=== PATIENT | female | born 1935 | race Caucasian/White ===

== ENCOUNTER 2016-12-02 12:27 | Observation (INO) | payer MEDICARE, OTHER ==
[2016-12-02] MEDS ORDERED: cefTRIAXone(*) 1 GM in NS 0.9% 50 ML* 50 ML IVPB ONE (14:56)
[2016-12-02] MEDS ORDERED: NS 0.9% 1000 ML* 1,000 ML IV ONE (14:56)
[2016-12-02 15:27] LABS: Hematocrit 34 % (35-47); Hemoglobin 11.6 g/dl (12.0-16.0); Mean Corpuscular HGB Conc 34 g/dl (31-36); Mean Corpuscular Hemoglobin 28 pg (27-31); Mean Corpuscular Volume 83 fL (80-97); Mean Platelet Volume 10 um3 (7.4-10.4); Red Blood Count 4.12 10^6/ul (4.0-5.4); Red Cell Distribution Width 13 % (10.5-15); White Blood Count 7.3 10^3/ul (3.5-10.8)
[2016-12-02 15:39] LABS: Urine Bilirubin Negative (Negative); Urine Glucose 1+(50 mg/dL) (Negative); Urine Nitrite Positive (Negative)
[2016-12-02 15:43] LABS: Albumin 3.4 g/dL (3.2-5.2); BUN/Creatinine Ratio 28.8 (8-20); Calcium 9.9 mg/dL (8.6-10.3); EGFR African American 97.9 (>60); EGFR Non-African American 76.1 (>60); Globulin 4.3 g/dL (2-4); Total Bilirubin 0.7 mg/dL (0.2-1.0); Total Protein 7.7 g/dL (6.4-8.9)
[2016-12-02 15:55] LABS: C Reactive Protein 21.77 mg/L (< 5.00); Urine Bacteria 3+ (Absent)
--- NOTE | 2016-12-02 17:42 | RAD ---
INDICATION: Right flank pain COMPARISON: None TECHNIQUE: Real-time ultrasound examination of the bilateral kidneys and urinary bladder including grayscale and Doppler color flow analysis. FINDINGS: The right kidney measures 10.9 x 4.4 x 4.3 cm. There is a mild degree of right-sided hydronephrosis. At the lower pole collecting system there is an echogenic partially shadowing calculus measuring 6 x 5 x 7 mm. The left kidney is sonographically normal in appearance measuring 11.2 x 5.8 x 5.6 cm. The winslow of the urinary bladder are smooth. Bilateral ureteral jets are not visualized. IMPRESSION: In the correct clinical setting sonographic findings are consistent with a urinary calculus causing mild to moderate right-sided hydronephrosis.
--- NOTE | 2016-12-02 18:55 | ED ---
Sowmya Anderson Alfonso, scribed for Aura Blackwell MD on 12/02/16 at 1500 . Complex/Multi-Sys Presentation - HPI Summary HPI Summary: This patient is an 81 year old F presenting per PCP referral to [facility] accompanied by daughter with a chief complaint of weakness since 10 days ago. Pt rates the pain 0/10 in severity. Symptoms aggravated and alleviated by nothing. Pt reports her last normal BM was this morning. Pt reports abd pain, productive cough, weight loss of 10 lb in 10 days, and N/V. Pt denies urinary symptom, melena, and blood in stools. PMHx of diabetes mellitus. In PCP's office pt had pos leuks and pos nitrites on UA. Referred for further eval of poss pyelo, poss sepsis, poss hydronephrosis and kidney stones (which pt has had in the past). - History Of Current Complaint Chief Complaint: EDWeakness Time Seen by Provider: 12/02/16 14:26 Hx Obtained From: Patient, Family/Guest Relations Associate - Daughter, Medical Records - PCP Onset/Duration: Sudden Onset, Lasting Days - 10, Still Present Timing: Constant Severity Currently: Mild Severity Initially: Mild Character: Dull Aggravating Factor(s): Nothing Alleviating Factor(s): Nothing Associated Signs And Symptoms: Positive: Weakness, Cough, Wheezing, Nausea, Vomiting, Abdominal Pain, Decreased Oral Intake, Other - Positive weakness, abd pain, productive cough, weight loss of 10 lb in 10 days, and N/V; negative urinary symptoms, melena, and blood in stools.. Negative: Dysuria, Melena, Fever Related History: Similar Episode/Diagnosed As: - hydronephrosis - Allergies/Home Medications Allergies/Adverse Reactions: Allergies Allergy/AdvReac Type Severity Reaction Status Date / Time Nitrofurantoin Allergy Mild Anxiety Verified 06/16/14 08:18 [From Macrobid] Home Medications: Home Medications Cholecalciferol TAB* [Vitamin D TAB*] 1,000 unit PO DAILY 12/02/16 [History Confirmed 12/02/16] Cyanocobalamin TAB* [Vitamin B12 TAB*] 1,000 mcg PO DAILY 12/02/16 [History Confirmed 12/02/16] Insulin Glargine [Lantus Solostar 5x3 ML PENS] 30 units SUBCUT QPM 12/02/16 [ History Confirmed 12/02/16] Losartan TAB* [Cozaar TAB*] 100 mg PO DAILY 12/02/16 [History Confirmed 12/02/16 ] Meclizine TAB* [Antivert 12.5 TAB*] 12.5 mg PO QID PRN 12/02/16 [History Confirmed 12/02/16] Omeprazole CAP* [Prilosec CAP* 20 MG] 20 mg PO DAILY 12/02/16 [History Confirmed 12/02/16] Raloxifene (NF) [Evista(NF)] 60 mg PO DAILY 12/02/16 [History Confirmed 12/02/16 ] Simvastatin TAB(NF) [Zocor(NF)] 20 mg PO BEDTIME 12/02/16 [History Confirmed 03/11] PMH/Surg Hx/FS Hx/Imm Hx Previously Healthy: No Endocrine/Hematology History: Reports: Hx Diabetes - TYPE II- ON INSULIN FOR Denies: Hx Sickle Cell Disease Cardiovascular History: Reports: Hx Hypertension - ON MEDICATION FOR, Other Cardiovascular Problems/Disorders - HIGH CHOLESTEROL Respiratory History: Denies: Other Respiratory Problems/Disorders GI History: Reports: Hx Gastroesophageal Reflux Disease - ON OMEPRAZOLE FOR, Hx Hiatal Hernia History: Reports: Hx Kidney Infection, Hx Kidney Stones - LAST IN 04/2014, Other Problems/Disorders - UTI; HX OF BILAT KIDNEY STONES-sees Dr. 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 Hx Chemotherapy: No Hx Radiation Therapy: No - Surgical History Surgery Procedure, Year, and Place: LITHOTRIPSY - NAVJOT NEFF HERE WITH JANET. 04/2014-LITHOTRIPSY AND STENT REMOVED. APPENDIX - 1953. TONSILS - 1947. PARATHYROID - 1989-[facility]. COLON RESECTION. UMBILLICAL HERNIA REPAIR. HERNIA-2007 [facility] Hx Anesthesia Reactions: No - PT REQUESTS NO SPINAL!!!!!! - Immunization History Date of Tetanus Vaccine: 06/21/2015 Date of Influenza Vaccine: 02/27/2016 Infectious Disease History: No Infectious Disease History: Denies: Traveled Outside the [place] in Last 30 Days - Family History Known Family History: Positive: Cardiac Disease - Social History Alcohol Use: None Substance Use Type: Reports: None Smoking Status (MU): Never Smoked Tobacco Review of Systems Positive: Other - Positive weight loss of 10 lb in 10 days Cardiovascular: Negative Positive: Cough - Productive Positive: Abdominal Pain, Vomiting, Nausea, Other - Negative melena, blood in stools, Positive: no symptoms reported Musculoskeletal: Negative Skin: Negative Positive: Weakness Psychological: Normal All Other Systems Reviewed And Are Negative: Yes Physical Exam Triage Information Reviewed: Yes Vital Signs On Initial Exam: Initial Vitals Temp Pulse Resp BP Pulse Ox 97.5 F 116 20 151/93 98 12/02/16 12:29 12/02/16 12:29 12/02/16 12:29 12/02/16 12:29 12/02/16 12:29 Vital Signs Reviewed: Yes Appearance: Positive: Well-Appearing, No Pain Distress, Obese Skin: Positive: Warm, Skin Color Reflects Adequate Perfusion Head/Face: Positive: Normal Head/Face Inspection Eyes: Positive: Conjunctiva Clear ENT: Positive: Normal ENT inspection Neck: Positive: Supple Respiratory/Lung Sounds: Positive: Clear to Auscultation, Breath Sounds Present Cardiovascular: Positive: Pulses are Symmetrical in both Upper and Lower Extremities, Tachycardia. Negative: Murmur Abdomen Description: Positive: No Organomegaly, Soft, Other: - Minimal diffuse tenderness of abdomen with no rebound.. Negative: CVA Tenderness (R), CVA Tenderness (L), Distended, Guarding, McBurney's Point Tenderness, Peritoneal Signs, Pulsatile Mass Bowel Sounds: Positive: Present Musculoskeletal: Positive: Strength/ROM Intact Neurological: Positive: Sensory/Motor Intact, Alert, Oriented to Person Place, Time, CN Intact II-III. Negative: Facial Droop, Focal Deficit @, Slurred Speech Psychiatric: Positive: Normal - Rosalind Coma Scale Coma Scale Total: 15 Diagnostics - Vital Signs Vital Signs Temp Pulse Resp BP Pulse Ox 12/02/16 14:54 152/84 12/02/16 14:22 97.7 F 100 19 170/110 98 12/02/16 12:29 97.5 F 116 20 151/93 98 - Laboratory Lab Results: Lab Results 07/10/17 07/10/17 07/10/17 Range/Units 15:15 15:15 15:15 WBC 7.3 (3.5-10.8) 10^3/ul RBC 4.12 (4.0-5.4) 10^6/ul Hgb 11.6 L (12.0-16.0) g/dl Hct 34 L (35-47) % MCV 83 (80-97) fL MCH 28 (27-31) pg MCHC 34 (31-36) g/dl RDW 13 (10.5-15) % Plt Count 234 (150-450) 10^3/ul MPV 10 (7.4-10.4) um3 Neut % (Auto) 71.3 (38-83) % Lymph % (Auto) 17.8 L (25-47) % Brown % (Auto) 7.9 (1-9) % Eos % (Auto) 1.5 (0-6) % Baso % (Auto) 1.5 (0-2) % Absolute Neuts (auto) 5.2 (1.5-7.7) 10^3/ul Absolute Lymphs (auto) 1.3 (1.0-4.8) 10^3/ul Absolute Monos (auto) 0.6 (0-0.8) 10^3/ul Absolute Eos (auto) 0.1 (0-0.6) 10^3/ul Absolute Basos (auto) 0.1 (0-0.2) 10^3/ul Absolute Nucleated RBC 0 10^3/ul Nucleated RBC % 0 Sodium 132 L (133-145) mmol/L Potassium 4.0 (3.5-5.0) mmol/L Chloride 97 L (101-111) mmol/L Carbon Dioxide 26 (22-32) mmol/L Anion Gap 9 (2-11) mmol/L BUN 21 (6-24) mg/dL Creatinine 0.73 (0.51-0.95) mg/dL Est GFR ( Amer) 97.9 (>60) Est GFR (Non-Af Amer) 76.1 (>60) BUN/Creatinine Ratio 28.8 H (8-20) Glucose 162 H (70-100) mg/dL Lactic Acid (0.5-2.0) mmol/L Calcium 9.9 (8.6-10.3) mg/dL Total Bilirubin 0.70 (0.2-1.0) mg/dL AST 12 L (13-39) U/L ALT 13 (7-52) U/L Alkaline Phosphatase 70 (34-104) U/L C-Reactive Protein 21.77 H (< 5.00) mg/L Total Protein 7.7 (6.4-8.9) g/dL Albumin 3.4 (3.2-5.2) g/dL Globulin 4.3 H (2-4) g/dL Albumin/Globulin Ratio 0.8 L (1-3) Urine Color Yellow Urine Appearance Cloudy Urine pH 5.0 (5-9) Ur Specific [place] 1.012 (1.010-1.030) Urine Protein Negative (Negative) Urine Ketones Negative (Negative) Urine Blood Negative (Negative) Urine Nitrate Positive H (Negative) Urine Bilirubin Negative (Negative) Urine Urobilinogen Negative (Negative) Ur Leukocyte Esterase 3+ H (Negative) Urine WBC (Auto) 2+(11-20/hpf) H (Absent) Urine RBC (Auto) Absent (Absent) Urine Bacteria 3+ H (Absent) Urine Glucose 1+(50 mg/dl) H (Negative) 12/02/16 Range/Units 15:15 WBC (3.5-10.8) 10^3/ul RBC (4.0-5.4) 10^6/ul Hgb (12.0-16.0) g/dl Hct (35-47) % MCV (80-97) fL MCH (27-31) pg MCHC (31-36) g/dl RDW (10.5-15) % Plt Count (150-450) 10^3/ul MPV (7.4-10.4) um3 Neut % (Auto) (38-83) % Lymph % (Auto) (25-47) % Brown % (Auto) (1-9) % Eos % (Auto) (0-6) % Baso % (Auto) (0-2) % Absolute Neuts (auto) (1.5-7.7) 10^3/ul Absolute Lymphs (auto) (1.0-4.8) 10^3/ul Absolute Monos (auto) (0-0.8) 10^3/ul Absolute Eos (auto) (0-0.6) 10^3/ul Absolute Basos (auto) (0-0.2) 10^3/ul Absolute Nucleated RBC 10^3/ul Nucleated RBC % Sodium (133-145) mmol/L Potassium (3.5-5.0) mmol/L Chloride (101-111) mmol/L Carbon Dioxide (22-32) mmol/L Anion Gap (2-11) mmol/L BUN (6-24) mg/dL Creatinine (0.51-0.95) mg/dL Est GFR ( Amer) (>60) Est GFR (Non-Af Amer) (>60) BUN/Creatinine Ratio (8-20) Glucose (70-100) mg/dL Lactic Acid 1.2 (0.5-2.0) mmol/L Calcium (8.6-10.3) mg/dL Total Bilirubin (0.2-1.0) mg/dL AST (13-39) U/L ALT (7-52) U/L Alkaline Phosphatase (34-104) U/L C-Reactive Protein (< 5.00) mg/L Total Protein (6.4-8.9) g/dL Albumin (3.2-5.2) g/dL Globulin (2-4) g/dL Albumin/Globulin Ratio (1-3) Urine Color Urine Appearance Urine pH (5-9) Ur Specific [place] (1.010-1.030) Urine Protein (Negative) Urine Ketones (Negative) Urine Blood (Negative) Urine Nitrate (Negative) Urine Bilirubin (Negative) Urine Urobilinogen (Negative) Ur Leukocyte Esterase (Negative) Urine WBC (Auto) (Absent) Urine RBC (Auto) (Absent) Urine Bacteria (Absent) Urine Glucose (Negative) Result Diagrams: 12/02/16 15:15 12/02/16 15:15 Lab Statement: Any lab studies that have been ordered have been reviewed, and results considered in the medical decision making process. - Additional Comments Diagnostic Additional Comments: Renal US :In the correct clinical setting sonographic findings are consistent with a urinary calculus causing mild to moderate right-sided hydronephrosis. Re-Evaluation - Re-Evaluation First Eval Re-Evaluation Time: 17:47 Change: Improved Comment: Pt reports she is hungry and is not in pain currently. Discussed lab and imaging results. Pt understands and agrees with plan for admission. Complex Multi-Symp Course/Dx Assessment/Plan: 81 year old F presents to the ED with a CC of weakness since 10 days ago. Pt reports abdominal pain, productive cough, weight loss of 10 lb in 10 days, and N/V. Pt denies urinary symptoms, melena, and blood in stools. An US renal reveals In the correct clinical setting sonographic findings are consistent with a urinary calculus causing mild to moderate right-sided hydronephrosis. We discussed patient care with Dr. Hudson (Patients PCP) and they recommended an US. Patient will be admitted under the care of Dr. Bernal ( hospitalist). Of note, Dr. Pulliam is application analyst tomorrow. Dr. Bernal agrees that pt can be admitted overnight despite no urologist application analyst tonight. Pt is agreeable with this plan. High blood pressure noted. Pt medications reviewed this visit. - Diagnoses Differential Diagnoses/HQI/PQRI: Metabolic Abnormality, Sepsis, Urinary Tract Infection, Other - pyelonephritis, hydronephrosis, renal calculi Provider Diagnoses: UTI (urinary tract infection), Hydronephrosis determined by ultrasound, Hypertension, poor control - Physician Notifications Discussed Care Of Patient With: Clare Hudson Time Discussed With Above Provider: 16:00 Instructed by Provider To: Admit As Inpatient - Consulted Dr. Hudson (Patient's PCP) who recommended an US. Consulted Dr. Bernal (hospitalist) at 1801 who agrees to admit. Discharge - Discharge Plan Condition: Stable Disposition: ADMITTED TO [facility] Referrals: Clare Hudson MD [Primary Care Provider] - The documentation as recorded by the Sowmya mei Alfonso accurately reflects the service I personally performed and the decisions made by , Aura Blackwell MD.
[2016-12-02] MEDS ORDERED: Acetaminophen TAB* 325 MG PO PRN (18:59)
[2016-12-02] MEDS ORDERED: Meclizine TAB* 12.5 MG PO PRN (19:03)
[2016-12-02] MEDS ORDERED: Dextrose 50% Syringe 50 ML* 25 GM/50 ML SYRINGE IV PUSH PRN (19:04)
[2016-12-02] MEDS ORDERED: NS 0.9% 1000 ML* 1,000 ML IV SCH (19:15)
--- NOTE | 2016-12-02 19:59 | RAD ---
INDICATION: Cough and weakness COMPARISON: Chest x-ray dated February 14, 2014 TECHNIQUE: PA and lateral views of the chest were obtained. FINDINGS: The heart and mediastinum are normal in size and contour. Stable ectatic curvature of the thoracic aorta is noted. The lungs are grossly clear. There is no evidence of large pleural effusion. The bones appear to be diffusely osteopenic. Degenerative changes of thoracic spine include loss of intervertebral disc height. There is no radiographic evidence of free air beneath the diaphragm IMPRESSION: No radiographic evidence of acute cardiopulmonary disease.
[2016-12-02] MEDS ORDERED: Atorvastatin* 10 MG TAB PO SCH (21:00)
[2016-12-02] MEDS ORDERED: Insulin GLARGINE(*) 1 UNITS UNIT SUBCUT SCH (21:00)
[2016-12-02] MEDS: Insulin LISPRO* 1 UNITS UNIT SUBCUT SCH (22:02)
[2016-12-02] MEDS: Heparin VIAL(*) 5000 UNITS/ML VIAL (FIVE THOUSAND) SUBCUT SCH (22:03)
[2016-12-02] MEDS ORDERED: CMCS:Melatonin (NF) 3 MG TAB PO PRN (23:47)
--- NOTE | 2016-12-03 | HP ---
CC: Dr. Hudson; Dr. Erick Pulliam * ADMISSION HISTORY AND PHYSICAL: DATE OF ADMISSION: PRIMARY CARE PROVIDER: Clare Hudson MD CHIEF COMPLAINT: Fatigue. SOURCE OF INFORMATION: History obtained from interview with patient, review of Dr. Hudson's note from today in clinic, review of past medical records. RELIABILITY: Good. HISTORY OF PRESENT ILLNESS: This is an 81-year-old female with a past medical history of recurrent renal calculi associated with recurrent UTIs, status post lithotripsy approximately 7 times, last in 2003 with a stent in the right ureter in 2012, who for the last 10 to 12 days, has had increasing nausea, mostly in the morning, sensation as she has been choking on phlegm associated with coughing and decreased appetite. She has noted no leonarda fevers, although did feel sweaty, although not soaking through her cloths, no shaking chills, but did feel cold in general. Because of the persistent symptoms, her family convinced her to present to her primary care provider, Dr. Hudson, where she was seen today. The patient stated she "thought I had a bug." When seen by Dr. Hudson today, she was concerned that she had a systemic infection and was directed her towards to the emergency room. At her baseline, the patient plays cards several times a week outside of their home and attends an exercise class; however, there is a decline over the last 2 weeks. Additionally, she notes a 10 -pound weight loss over the 10 days, not associated with lower extremity swelling, urinary frequency, hesitancy or dysuria, although the patient and her daughter notes that she has never had these symptoms with past urinary tract infections. She denies change in her sleeping habits. In fact, notes she has been sleeping better with decreased urine output overnight. Denies orthopnea or PND. The patient additionally denies chest pain. PAST MEDICAL HISTORY: Recurrent renal calculi, status post multiple lithotripsies, last in 2013, recurrent UTIs, insulin dependent diabetes mellitus , hypertension, hyperlipidemia, aneurysm of thoracic aorta, hyperparathyroidism , status post partial parathyroidectomy, osteoporosis, hiatal hernia, diverticulosis, colectomy in 2007, osteoarthritis, appendectomy, tonsillectomy, hysterectomy, evacuation of subdural hematoma, hernia repair umbilical in 2005, recurrent diverticulitis. HOME MEDICATIONS: 1. Vitamin B12 1000 mcg daily. 2. Simvastatin 20 mg at bedtime. 3. Raloxifene 60 mg daily. 4. Omeprazole 20 mg daily. 5. Losartan 100 mg daily. 6. Insulin glargine 30 units in the evening, unclear if she receives a sliding scale insulin at this time. 7. Cholecalciferol 1000 units daily. 8. Meclizine 12.5 mg 4 times a day as needed for vertigo. ALLERGIES: To MACROBID. FAMILY HISTORY: Mother with glaucoma, secondary to Parkinson at age 95. Father secondary to hypertension and stroke at 85. SOCIAL HISTORY: No history of tobacco, has very rare alcohol. No illicits. Lives alone. REVIEW OF SYSTEMS: As per HPI, otherwise all other systems are negative. PHYSICAL EXAMINATION Vitals in the emergency room 138/72, heart rate 89, respiratory rate 18, T-max in the emergency room 98.9. She is 100% on room air. PERTINENT LABORATORY DATA: White blood cell count 7.3, hemoglobin 11.6, platelets 234. Sodium 132, BUN 21, creatinine 0.73, glucose 162, lactic acid 1.2. CRP is 21. Urine positive for nitrites, leukocyte esterase, white blood cells, bacteria and glucose. Renal ultrasound: At the lower pole collecting system, there is an echogenic partially shadowing calculus measuring 6 x 6 x 7 mm of the right kidney. Impression: In the correct clinical settings, sonographic findings are consistent with a urinary calculus causing mild to moderate right-sided hydronephrosis. EKG and chest x-ray are pending. ASSESSMENT AND PLAN: This is an 81-year-old female with recurrent urinary tract infections in the setting of recurrent renal calculi presenting to the hospital with nausea associated with fatigue and weight loss over the last 1 to 2 weeks. 1. Fatigue. Urinalysis is consistent with a urinary tract infection. Additionally, she has a repeat nephrolithiasis consistent with past presentations. Suspect urinary tract infection at this time, although she does appear septic at this time. She has received ceftriaxone in the emergency room. We will dose ciprofloxacin tomorrow for her nephrolithiasis with obstruction. Dr. Pulliam will be consulted tomorrow; however, she has not received an EKG nor a chest x-ray at this time. We will check both to rule out any worsening cardiac etiology for progressive weakness over the last week as well as any other underlying infection as she has been having cough and increasing phlegm. Ceftriaxone should cover for both at this time. 2. Nephrolithiasis. Consult Urology as above. Gentle hydration. 3. Hypertension. Consider continue losartan. 4. Type 2 diabetes. Continue Lantus, low dose sliding scale. 5. DVT prophylaxis. Heparin subcu. 6. Full code. [id number]/[facility] #: [id number] MTDD
[2016-12-03] MEDS: Heparin VIAL(*) 5000 UNITS/ML VIAL (FIVE THOUSAND) SUBCUT SCH ×2 (05:54→12:48)
[2016-12-03] MEDS: Insulin LISPRO* 1 UNITS UNIT SUBCUT SCH ×2 (07:28→12:46)
[2016-12-03] MEDS ORDERED: Ciprofloxacin TAB* 500 MG PO SCH (09:00)
[2016-12-03] MEDS ORDERED: Cyanocobalamin TAB* 500 MCG PO SCH (09:00)
[2016-12-03] MEDS ORDERED: Cholecalciferol TAB* 1000 UNITS PO SCH (09:00)
[2016-12-03] MEDS ORDERED: Losartan TAB* 25 MG PO SCH (09:00)
[2016-12-03] MEDS ORDERED: Raloxifene (NF) 60 MG TAB PO SCH (09:00)
[2016-12-03] MEDS ORDERED: Omeprazole CAP* 20 MG PO SCH (09:00)
[2016-12-03 12:57] VITALS: BP 124/61
--- NOTE | 2016-12-04 12:07 | DS ---
CC: Dr. Hudson * DISCHARGE SUMMARY: DATE OF ADMISSION: 12/02/16 DATE OF DISCHARGE: 12/03/16 PRIMARY DIAGNOSIS: Nephrolithiasis. SECONDARY DIAGNOSES: Include: 1. Recurrent urinary tract infections. 2. Insulin-dependent diabetes mellitus. 3. Hypertension. 4. Hyperlipidemia. DISCHARGE MEDICATIONS: 1. Vitamin B12 1000 mcg daily. 2. Simvastatin 20 mg in the evening. 3. Evista 60 mg daily. 4. Omeprazole 20 mg daily. 5. Losartan 100 mg daily. 6. Insulin glargine 30 units in the evening. 7. Cholecalciferol 1000 units daily. 8. Meclizine 12.5 mg 4 times a day as needed. 9. Keflex 500 mg 2 times a day for 7 additional days. PERTINENT IMAGING STUDIES: Renal ultrasound in the correct clinical setting, sonographic findings are consistent with a urinary calculus causing mild-to- moderate right-sided hydronephrosis. ASSESSMENT AND PLAN: This is an 81-year-old female with past medical history as outlined in the history present illness on the day of admission, who presented to the hospital with increasing fatigue, weakness, nausea over the last 10 to 12 days, sent in from Dr. Hudson's office. Urinalysis was consistent with a urinary tract infection, although culture is still pending at this time. Renal ultrasound above was concerning for obstructing nephrolithiasis with possible [id number] hydronephrosis. This study was reviewed with Dr. Pulliam, who indicated that the nephrolithiasis is stable, nonobstructing, since her last ultrasound checked in August of 2016. Additionally, she has an extrarenal pelvis, which can be misconstrued as hydronephrosis, which he does not think she has at this time. In this respect, she is stable for discharge should the discharge be pending intervention on nephrolithiasis as well as hydronephrosis. After a dose of antibiotics and a liter of IV fluid, the patient felt back to her baseline following the day of admission. She was anxious to return home. FOLLOWUP: At followup, please: 1. Follow up final cultures and sensitivity from urinalysis. The patient is to start on Keflex based on previous cultures and sensitivities. 2. No other specific labs or vitals that need followup. Reasons to return to the hospital included but are not limited to recurrent or worsening symptoms including fever, chills or night sweats, chest pain, shortness of breath, nausea, vomiting, lightheadedness, loss of consciousness, increasing fatigue, urinary symptoms, or inability to obtain or tolerate medications discussed with the patient and her son. They acknowledged understanding. TIME SPENT: Greater than 30 minutes was spent on the discharge of this patient , greater than half was [id number] with the patient. [id number]/[facility] #: [id number] MTDD
== END 2016-12-03 13:30 | disposition home or self-care (01) ==
LOC: ED 12:27 → MED 18:59
PROVIDERS: ADMIT Internal Medicine; ATTEND Internal Medicine
DX: N20.0 Calculus of kidney (principal); Z87.440 Personal history of urinary (tract) infections; R10.9 Unspecified abdominal pain; E11.9 Type 2 diabetes mellitus without complications; Z79.4 Long term (current) use of insulin; I10 Essential (primary) hypertension; E78.5 Hyperlipidemia, unspecified; Q64.8 Other specified congenital malformations of urinary system
CPT/HCPCS: 36415; 71020; 76775; 80053; 81003; 81015; 83605; 85025; 86140; 87040; 93005; 96361; 96365; 99283; A9270-GY; G0378; J0696; J1644

== ENCOUNTER 2017-02-10 06:22 | Day surgery (SDC) | payer MEDICARE, BC ==
--- NOTE | 2017-01-24 08:14 | HP ---
CC: Dr. Clare Hudson * ADMITTING HISTORY AND PHYSICAL: DATE OF ADMISSION: 02/10/17 - [facility] WITH [facility] ADMITTING DIAGNOSES: 1. Right hydronephrosis. 2. Partial right ureteropelvic junction obstruction. 3. Recurrent urinary tract infections. PLANNED PROCEDURE: Right retrograde, right stent insertion, possible balloon dilatation. SURGEON: Dr. Pulliam. HISTORY OF PRESENT ILLNESS: Laura Stratton is an 81-year-old lady with a history of recurrent urinary tract infections and of renal calculi. On retrograde imaging done a few years ago, I had noticed an appearance consistent with partial right ureteropelvic junction obstruction and a recent ultrasound showed worsening of right hydronephrosis. In addition, she had a recent admission in November of 2016 related to fatigue and urinary tract infection. PAST MEDICAL HISTORY: Significant for: 1. Recurrent renal calculi. 2. Recurrent urinary tract infections. 3. Insulin-dependent diabetes mellitus. 4. Hypertension. 5. Hyperlipidemia. 6. Thoracic aortic aneurysm. 7. Hyperparathyroidism. 8. Arthritis. 9. History of subdural hematoma. MEDICATIONS: On admission: 1. Vitamin B12 1000 mcg daily. 2. Raloxifene 60 mg daily. 3. Omeprazole 20 mg daily. 4. Simvastatin 20 mg daily. 5. Cholecalciferol 1000 units daily. 6. Losartan 100 mg daily. 7. Insulin 30 units in the evening. 8. Meclizine 12.5 mg p.r.n. ALLERGIES AND INTOLERANCES: MACROBID. PHYSICAL EXAMINATION GENERAL: Reveals a pleasant elderly lady. VITAL SIGNS: Blood pressure is 126/80, pulse is 73 per minute and regular, temperature 96.6, oxygen saturation 97% on room air. LUNGS: Clear bilaterally. CARDIOVASCULAR: Regular rate and rhythm. S1, S2. ABDOMEN: Soft without masses. There is mild right flank tenderness. IMPRESSION: An 81-year-old lady with recurrent urinary tract infections and worsening right hydronephrosis most likely secondary to partial right ureteropelvic junction obstruction. PLAN: Plan is for right retrograde, right stent insertion, and possible balloon dilatation depending on the retrograde findings. [id number]/[facility] #: [id number] MTDD
[~2017-02-10 06:22] MED LIST: Buffered Lidocaine 0.9% SYRIN* 5 ML/SYR SYRINGE INTRADERM ONE; Famotidine IV* 10 MG/ML 2 ML (20 mg) IV ONE; Metoclopramide TAB* 10 MG PO ONE
[2017-02-10] MEDS ORDERED: Famotidine IV* 10 MG/ML 2 ML (20 mg) ONE (06:31)
[2017-02-10] MEDS ORDERED: Metoclopramide TAB* 10 MG ONE (06:31)
[2017-02-10] MEDS ORDERED: cefTRIAXone(*) 2 GM ADDV.VIAL IVPB ONE (06:31)
[2017-02-10] MEDS ORDERED: Buffered Lidocaine 0.9% SYRIN* 5 ML/SYR SYRINGE ONE (06:32)
[2017-02-10] MEDS ORDERED: Dexamethasone IV* 4 MG/ML 1 ML (4 MG) ONE (07:15)
[2017-02-10] MEDS ORDERED: Ketorolac INJ* 30 MG/ML 1 ML VIAL ONE (07:15)
[2017-02-10] MEDS ORDERED: Lidocaine 2% PF * 5 ML VIAL ONE (07:15)
[2017-02-10] MEDS ORDERED: Ondansetron INJ* 2 MG/ML VIAL ONE (07:15)
[2017-02-10] MEDS ORDERED: Propofol* 10 MG/ML 20 ML BTL IV PUSH ONE (07:15)
[2017-02-10] MEDS ORDERED: fentaNYL* 50 MCG/ML 2 ML VIAL (100 MCG VIAL) ONE (07:15)
[2017-02-10] MEDS ORDERED: Midazolam* 1 MG/ML 5 ML VIAL (5 MG) ONE (07:16)
[2017-02-10] MEDS ORDERED: KETAMINE HCL* 50 MG/ML 10 ML VIAL ONE (07:16)
[2017-02-10] MEDS ORDERED: Iohexol 180 (CONTRAST) 10 ML SDV IV ONE (07:29)
[2017-02-10] MEDS ORDERED: HYDROmorphone INJ* 1 MG/ML CARPUJECT SYRINGE IV PRN (07:48)
[2017-02-10] MEDS ORDERED: Ondansetron INJ* 2 MG/ML VIAL IV PRN (07:48)
[2017-02-10] MEDS ORDERED: oxyCODONE/Acetamin 5/325 MG* TAB PO PRN (07:48)
[2017-02-10] MEDS ORDERED: fentaNYL* 50 MCG/ML 2 ML VIAL (100 MCG VIAL) IV PRN (07:48)
[2017-02-10] MEDS ORDERED: Phenylephrine IV* 40 MCG/ML 10 ML SYRINGE ONE ×2 (08:05)
[2017-02-10] MEDS ORDERED: Furosemide IV* 10 MG/ML 2 ML VIAL (20 MG) ONE (08:42)
[2017-02-10] MEDS ORDERED: Bupivacaine 0.5% SDV PF* 30 ML VIAL ONE (09:58)
[2017-02-10] MEDS ORDERED: Lidocaine 2% PF* 10 ML AMP ONE (10:39)
[2017-02-10 11:12] VITALS: BP 141/71
--- NOTE | 2017-02-10 14:02 | OP ---
CC: Dr. Clare Hudson * DATE OF OPERATION: 02/10/17 - [facility] DATE OF : 31 SURGEON: Erick Pulliam MD ANESTHESIOLOGIST: Dr. Faria. ANESTHESIA: General. PRE-OP DIAGNOSES: 1. Right hydronephrosis. 2. 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 POST-OP DIAGNOSES: 1. Right hydronephrosis. 2. 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 OPERATIVE PROCEDURE: Cystoscopy, right retrograde pyelogram, right ureteral balloon dilatation, and right stent insertion. COMPLICATIONS: None. STENT USED: 8.5 Albanian, 28 cm silicone stent right ureter. INDICATIONS: Laura Stratton is an 81-year-old lady with a history of recurrent urinary tract infections and history of recurrent calculi. She was recently noted to have progressively increasing right hydronephrosis, which I suspect is due to a partial ureteropelvic junction obstruction. OPERATIVE FINDINGS: Right hydronephrosis and dilated renal pelvis with narrowing at right ureteropelvic junction noted. DESCRIPTION OF PROCEDURE: After induction of general anesthesia, patient was placed in dorsal lithotomy position. Sequential compression devices were in place and functioning. Initial cystoscopy revealed chronic inflammatory changes in the floor of the bladder consistent with a history of recurrent urinary tract infection. There was no evidence of any suspicious lesions noted. A guidewire was introduced into the right ureter. Retrograde pyelogram revealed right hydronephrosis and dilated renal pelvis with narrowing noted at the ureteropelvic junction. This was initially carefully dilated with a 4- Albanian open-ended catheter and subsequently an 8-Albanian open-ended catheter. Next, a balloon dilator was introduced and under fluoroscopic monitoring, successful balloon dilatation of the ureteropelvic junction was carried out. Some extravasation was noted as expected after the balloon dilatation. An 8.5- Albanian, 28-cm silicone stent was introduced and positioned under fluoroscopy with good proximal and distal positioning obtained. A 16-Albanian Herbert was placed for temporary bladder drainage. The patient tolerated the procedure satisfactorily and was transferred back to the recovery area in stable condition. The plan is to leave the stent in for about 4 to 5 week to allow for healing of the area after the balloon dilatation. [id number]/CPS #: [id number] MTDD
--- NOTE | 2017-02-12 07:32 | RAD ---
CPT II Codes: 6045F INDICATION: Right-sided hydronephrosis and a patient with a history of right-sided renal stones. TECHNIQUE: Intraoperative fluoroscopy was provided during right retrograde nephrostogram and ureteral stent placement.. FINDINGS: 6 spot films depict a retrograde nephrostogram revealing mild to moderate hydronephrosis, balloon angioplasty of the proximal right ureter and anatomic placement of a right ureteral stent. On the image following balloon ureteroplasty of the ureteropelvic junction there is evidence of a small amount of leakage of contrast into the retroperitoneum outside the urinary collecting system. Fluoroscopy time: 15 seconds IMPRESSION: There is evidence of a small amount of leakage of contrast outside the urinary collecting system.
== END 2017-02-10 11:12 | disposition home or self-care (01) ==
LOC: OR 06:22
PROVIDERS: ATTEND Urology
DX: N13.30 Unspecified hydronephrosis (principal); Z87.440 Personal history of urinary (tract) infections; Z87.442 Personal history of urinary calculi; Z96.0 Presence of urogenital implants; E11.9 Type 2 diabetes mellitus without complications; Z79.4 Long term (current) use of insulin; I10 Essential (primary) hypertension; E78.5 Hyperlipidemia, unspecified; Z88.1 Allergy status to other antibiotic agents; K21.9 Gastro-esophageal reflux disease without esophagitis
CPT/HCPCS: 74420; A9270-GY; C1876; J0696; J1100; J1580; J1885; J1940; J2001; J2250; J2405; J2704; J3010

== ENCOUNTER 2019-01-29 09:29 | Observation (INO) | payer MEDICARE, OTHER, BC ==
--- NOTE | 2019-01-29 10:13 | ED ---
Altered Mental Status - HPI Summary HPI Summary: This patient is an 83 year old female presented to [facility] with a chief complaint of altered mental status since yesterday. Pt states that she feels confused because had the wrong time for an appointment yesterday afternoon. She states she was having chills at night. She states she is currently sick due to a UTI she is being treated for and reports a DOLAN. She denies urinary symptoms, SOB, N/V /D. Pt stated her PCP thinks she may be dehydrated. She is alert and oriented X3. She reports a Hx of DM and HTN. Medications reviewed. Allergies noted. Cholecalciferol TAB* [Vitamin D TAB*] 1,000 unit PO QAM 12/02/16 [History Confirmed 02/10/17] Cyanocobalamin TAB* [Vitamin B12 TAB*] 1,000 mcg PO QAM 12/02/16 [History Confirmed 02/10/17] Insulin Glargine,Hum.rec.anlog [Lantus Solostar 5x3 ML PENS] 30 - 32 units SUBCUT QPM 12/02/16 [History Confirmed 02/10/17] Losartan TAB* [Cozaar TAB*] 100 mg PO QAM 12/02/16 [History Confirmed 02/10/17] Meclizine TAB* [Antivert 12.5 TAB*] 12.5 mg PO QID PRN 12/02/16 [History Confirmed 02/10/17] Omeprazole CAP (NF) [Prilosec CAP* 20 MG] 20 mg PO QAM 12/02/16 [History Confirmed 02/10/17] Raloxifene (NF) [Evista(NF)] 60 mg PO QAM 12/02/16 [History Confirmed 02/10/17] Simvastatin TAB(NF) [Zocor 20 MG (NF)] 20 mg PO BEDTIME 12/02/16 [History Confirmed 02/10/17] Cephalexin CAP* [Keflex CAP*] 500 mg PO TID #21 cap 12/03/16 [Rx Confirmed 02/10] Metformin - History Of Current Complaint Chief Complaint: EDGeneral Stated Complaint: POSS DEHYDRATION PER PT Hx Obtained From: Patient Timing: Lasting Days Character: Confusion Associated Signs And Symptoms: Negative: Nausea, Vomiting - Allergies/Home Medications Allergies/Adverse Reactions: Allergies Allergy/AdvReac Type Severity Reaction Status Date / Time nitrofurantoin AdvReac Anxiety Verified 01/29/19 09:31 Home Medications: Home Medications Cholecalciferol (Vitamin D3) [Vitamin D3] 1,000 unit PO DAILY 01/29/19 [History Confirmed 01/29/19] Cyanocobalamin TAB* [Vitamin B12 TAB*] 1,000 mcg PO DAILY 01/29/19 [History Confirmed 01/29/19] Metformin HCl [Metformin HCl ER] 500 mg PO QPM 01/29/19 [History Confirmed 01/29] Sulfamethox/Trimethoprim SS* [Bactrim SS 400/80 TAB*] 2 tab PO BID 01/29/19 [ History Confirmed 01/29/19] PMH/Surg Hx/FS Hx/Imm Hx Endocrine/Hematology History: Reports: Hx Diabetes - TYPE I ON INSULIN FOR Denies: Hx Sickle Cell Disease Cardiovascular History: Reports: Hx Hypertension - ON MEDS PT. STATES CONTROLLED , Other Cardiovascular Problems/Disorders - HIGH CHOLESTEROL Respiratory History: Denies: Other Respiratory Problems/Disorders GI History: Reports: Hx Gastroesophageal Reflux Disease - ON MEDS PT. STATES CONTROLLED, Hx Hiatal Hernia History: Reports: Hx Kidney Infection - OCCASIONALLY, Hx Kidney Stones - LAST IN 04/2014, Other Problems/Disorders - RT. 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 Hx Chemotherapy: No Hx Radiation Therapy: No - Surgical History Surgery Procedure, Year, and Place: LITHOTRIPSY - MULITPLE TIMES HERE WITH JANET. 04/2014-LITHOTRIPSY AND STENT REMOVED. APPENDIX - 1953. TONSILS - 1947. [facility]ROID [place] [facility]. COLON RESECTION . [place] [facility] [place] [facility] [place] [facility] [place] [place] Anesthesia Reactions: No - PT REQUESTS NO SPINAL!!!!!! - Immunization History Date of Tetanus Vaccine: 06/21/2015 Date of Influenza Vaccine: 02/27/2016 Infectious Disease History: No Infectious Disease History: Denies: Traveled Outside the [place] in Last 30 Days - Family History Known Family History: Positive: Cardiac Disease - Social History Alcohol Use: Rare Substance Use Type: Reports: None Smoking Status (MU): Never Smoked Tobacco Review of Systems Positive: Chills. Negative: Fever Negative: Shortness Of Breath Negative: Vomiting, Diarrhea, Nausea Positive: no symptoms reported Neurological: Other - Confusion Positive: Headache All Other Systems Reviewed And Are Negative: Yes Physical Exam - Summary Physical Exam Summary: Constitutional: Well-developed, Well-nourished, Alert. (-) Distressed Skin: Warm, Dry HENT: Normocephalic; Atraumatic Eyes: Conjunctiva normal Neck: Musculoskeletal ROM normal neck. (-) JVD, (-) Stridor, (-) Tracheal deviation Cardio: Rhythm regular, rate normal, Heart sounds normal; Intact distal pulses; The pedal pulses are 2+ and symmetric. Radial pulses are 2+ and symmetric. (-) Murmur Pulmonary/Chest wall: Effort normal. (-) Respiratory distress, (-) Wheezes, (-) Rales Abd: Soft, (-) tenderness, (-) Distension, (-) Guarding, (-) Rebound Musculoskeletal: (-) Edema Lymph: (-) Cervical adenopathy Neuro: Alert, Oriented x3 Psych: Mood and affect Normal Triage Information Reviewed: Yes Vital Signs On Initial Exam: Initial Vitals Temp Pulse Resp BP Pulse Ox 98.1 F 85 20 166/91 97 01/29/19 09:32 01/29/19 09:32 01/29/19 09:32 01/29/19 09:32 01/29/19 09:32 Vital Signs Reviewed: Yes Diagnostics - Vital Signs Vital Signs Temp Pulse Resp BP Pulse Ox 01/29/19 09:32 98.1 F 85 20 166/91 97 - Laboratory Result Diagrams: 01/29/19 10:37 01/29/19 10:37 Lab Statement: Any lab studies that have been ordered have been reviewed, and results considered in the medical decision making process. Re-Evaluation - Re-Evaluation First Eval Re-Evaluation Time: 11:46 Change: Worse Comment: Patient had a n/v episode x1 Altered Mental Statu Course/Dx - Course Course Of Treatment: Patient is here with altered mental status and dehydration. Patient was diagnosed a UTI and started on antibiotics by her PCP. Patient has felt confused today so she came into the hospital. Patient has evidence of dehydration on her blood work. Patient continues to have a urine infection on UA here. Patient vomited here. Patient likely has partially treated pyelonephritis and requires IV hydration overnight given her age and confusion. - Diagnoses Provider Diagnoses: Hyponatremia, BRADLY (acute kidney injury), Pyonephrosis, Vomiting - Provider Notifications Discussed Care Of Patient With: Pinky Sal - Hospitalist Time Discussed With Above Provider: 12:00 Instructed by Provider To: Admit As Inpatient Discharge ED - Sign-Out/Discharge Documenting (check all that apply): Patient Departure - Admission Patient Received Moderate/Deep Sedation with Procedure: No - Discharge Plan Condition: Stable Disposition: ADMITTED TO [facility] - Billing Disposition and Condition Condition: STABLE Disposition: Admitted to [facility] - Attestation Statements Document Initiated by Chandni: Yes Documenting Scribe: Satish Farmer Provider For Whom Scribe is Documenting (Include Credential): Harley Lopez MD Scribe Attestation: Satish Anderson, scribed for Harley Lopez MD on 01/29/19 at 1556. Scribe Documentation Reviewed: Yes Provider Attestation: The documentation as recorded by the Satish mei accurately reflects the service I personally performed and the decisions made by , Harley Lopez MD Status of Scribe Document: Viewed
[2019-01-29 10:54] LABS: Urine Appearance Clear; Urine Bacteria Absent (Absent); Urine Bilirubin Negative (Negative); Urine Blood Negative (Negative); Urine Color Yellow; Urine Glucose Negative (Negative); Urine Ketones Negative (Negative); Urine Nitrite Negative (Negative); Urine Protein Negative (Negative); Urine Red Blood Cell Trace(0-2/hpf) (Absent); Urine Specific Gravity 1.012 (1.010-1.030); Urine Squamous Epithelial Cell Present (Absent); Urine Urobilinogen Negative (Negative); Urine White Blood Cell 1+(6-10/hpf) (Absent)
--- OUTSIDE RECORDS SUMMARY | 2019-01-29 10:56 | XMS REPORT | Continuity of Care Document ---
:1935 External Reference #:[id number] Author Name Dong Messina M.D. Address [address] [facility] [place] [address] Care Team Providers Name Role Phone Clare Hudson M.D. - Internal Care Team Information Engineering Operator Medicine Ana Soto - Pediatric Care Team Information Engineering Operator Unavailable Dermatology Erick Tena M.D. - Urology Care Team Information Engineering Operator [phone] Problems Active Problems Provider Date Kidney stone Onset: Essential hypertension Onset: Osteoporosis Onset: Hypermetropia Onset: Type 2 diabetes mellitus Onset: Ocular hypertension Will Quintana M.D. Onset: 12/22/2014 Pseudophakia Will Quintana M.D. Onset: 12/22/2014 Benign neoplasm of eyelid including canthus Will Quintana M.D. Onset: 03/2016 Type 2 diabetes mellitus with mild Will Quintana M.D. Onset: 01/04/2016 nonproliferative diabetic retinopathy without macular edema Type 2 diabetes mellitus with mild Will Quintana M.D. Onset: 07/29/2016 nonproliferative diabetic retinopathy without macular edema, bilateral Other secondary cataract, left eye Will Quintana M.D. Onset: 08/01/2017 Social History Type Date Description Comments Sex Unknown ETOH Use Denies alcohol use Tobacco Use Start: Unknown Patient has never smoked Recreational Drug Use Denies Drug Use Smoking Status Reviewed: 01/18/19 Patient has never smoked Allergies, Adverse Reactions, Alerts Active Allergies Reaction Severity Comments Date Lisinopril Cough 12/22/2014 Medications Active Medications SIG Qnty Indications Ordering Provider Date Simvastatin Unknown 10mg Tablets Omeprazole Unknown 10mg Capsules Clare Gómez M.D. 100Unit/ML Solution Pen-Inject Vitamin B12 Unknown 1000mcg Tablets ER Vitamin D3 Unknown 1000Unit Tablets Losartan Potassium Clare Hudson M.D. 100mg Tablets Biotin 1mg Unknown Capsules Immunizations Description No Information Available Vital Signs Description No Information Available Results Description No Information Available Procedures Date Code Description Status 08/03/2018 60726 Determination Of Refractive State Completed 08/03/2018 05220 Est Patient Comprehensive Exam Completed Medical Devices Description No Information Available Encounters Description No Information Available Assessments Date Code Description Provider 01/18/2019 H43.813 Vitreous degeneration, bilateral Dong Messina M.D. 01/18/2019 E11.3293 Type 2 diabetes mellitus with mild Dong Messina M.D. nonproliferative diabetic retinopathy without macular edema, bilateral 08/03/2018 E11.9 Type 2 diabetes mellitus without Will Quintana M.D. complications 08/03/2018 Z96.1 Presence of intraocular lens Will Quintana M.D. Plan of Treatment Future Appointment(s):08/03/2019 1:00 pm - Will Quintana M.D. at Will Quintana MD, 01/18/2019 - Dong Messina M.D.H43.813 Vitreous degeneration, bilateralComments:Smoking can increase the risk of developing or worsening any eye related disease, as well as affect your overall health. If you are a smoker , we strongly recommend that you quit.If you are not a smoker, we strongly recommend that you do not start. You have a Posterior Vitreous Detachment. If you have any changes in your floaters or flashing lights, please contact this office.E11.3293 Type 2 diabetes mellitus with mild nonproliferative diabetic retinopathy without macular edema, bilateralComments:I can detect diabetic changes in your eyes. Proper control of your diabetes is important for the health of your eyes. It is important that you keep all of your follow up appointments. Functional Status Description No Information Available Mental Status Description No Information Available Referrals Description No Information Available
[2019-01-29 11:03] LABS: ABS Eosinophils 0.1 10^3/ul (0-0.6); ABS Lymphocytes 0.9 10^3/ul (1.0-4.8); ABS Monocytes 0.4 10^3/ul (0-0.8); ABS Neutrophils 6.1 10^3/ul (1.5-7.7); Eosinophil % 1.4 %; Hematocrit 41 % (35-47); Hemoglobin 13.9 g/dL (12.0-16.0); Mean Corpuscular HGB Conc 34 g/dL (31-36); Mean Corpuscular Hemoglobin 29 pg (27-31); Mean Corpuscular Volume 85 fL (80-97); Mean Platelet Volume 9.6 fL (7.4-10.4); Nucleated Red Blood Cells % 0.1; Platelet Count 218 10^3/uL (150-450); Red Blood Count 4.78 10^6 /uL (3.70-4.87); Red Cell Distribution Width 15 % (10-15); White Blood Count 7.6 10^3/uL (3.5-10.8)
[2019-01-29 11:27] LABS: Albumin 4.4 g/dL (3.2-5.2); Albumin/Globulin Ratio 1.4 (1-3); BUN/Creatinine Ratio 11.8 (8-20); Calcium 10.2 mg/dL (8.6-10.3); EGFR African American 57.1 (>60); EGFR Non-African American 47.2 (>60); Globulin 3.2 g/dL (2-4); Potassium 4.3 mmol/L (3.5-5.0); Total Bilirubin 0.6 mg/dL (0.2-1.0); Total Protein 7.6 g/dL (6.4-8.9)
[2019-01-29] MEDS ORDERED: Ondansetron INJ* 2 MG/ML VIAL IV ONE (11:45)
[2019-01-29] MEDS ORDERED: NS 0.9% 1000 ML** 1,000 ML IV ONE (11:45)
[2019-01-29] MEDS ORDERED: cefTRIAXone(*) 1 GM in NS 0.9% 50 ML* 50 ML IVPB ONE (11:53)
[2019-01-29] MEDS ORDERED: Acetaminophen TAB* 325 MG PO PRN (12:42)
[2019-01-29] MEDS ORDERED: Magnesium Hydroxide LIQ* 30 ML UDC PO PRN (12:42)
[2019-01-29] MEDS ORDERED: Ondansetron INJ* 2 MG/ML VIAL IV PRN (12:42)
--- NOTE | 2019-01-29 14:57 | HP ---
CC: Dr. Clare Hudson * ADMISSION HISTORY AND PHYSICAL: DATE OF ADMISSION: 01/29/19 PRIMARY CARE PROVIDER: Dr. Clare Hudson. ATTENDING PHYSICIAN: Dr. Pinky Carpio.* (DICTATED BY ALVA RICHARDS NP) CHIEF COMPLAINT: Malaise and urinary frequency. HISTORY OF PRESENT ILLNESS: Ms. Stratton is an 83-year-old female patient who came to the emergency department today after at home over the last 24 hours feeling unsteady on her feet and increased urinary frequency and some forgetfulness. The patient states she did see her primary care provider in the office, who placed her on Bactrim for her urinary frequency. The patent states that she did have a urinary test showing that she had urinary tract infection. She is unsure what that testing revealed, but she was placed on Bactrim as a result. The patient states she was getting up multiple times during the night last night to urinate and then also started to feel unsteady and dizzy and subsequently also reports some symptoms of vague confusion. She then came into the emergency department with her son for these complaints. In the ED, her workup is essentially unremarkable. Her laboratory work is a negative. She does have, however, a low sodium and slightly elevated creatinine. She does appear to be somewhat dehydrated. She also had an issue with some coughing and 1 episode of emesis. For these reasons, the ER has asked us to evaluate the patient for admission. The patient also noted overnight last night that she did break a cold sweat at one point and became very unsteady on her feet, but did not report a subjective fever. PAST MEDICAL HISTORY: Significant for: 1. Hypertension. 2. GERD. 3. Diabetes mellitus, insulin dependent. 4. Recurrent chronic renal calculus. 5. Hyperlipidemia. 6. Thoracic aortic aneurysm. 7. Hyperparathyroidism and status post partial parathyroidectomy. 8. Osteoporosis. 9. Diverticulosis. 10. Osteoarthritis. PAST SURGICAL HISTORY: Significant for: 1. Partial parathyroidectomy. 2. Partial colectomy in 2007. 3. Appendectomy. 4. Tonsillectomy. 5. Hysterectomy. 6. Evacuation of the subdural hematoma. 7. Umbilical hernia repair. 8. Multiple lithotripsies. MEDICATIONS: Her home medications include: 1. Insulin glargine 32 units subcu in the evening. 2. Vitamin B12 1000 mcg p.o. daily. 3. Raloxifene 60 mg in the morning. 4. Zocor 20 mg in the evening. 5. Prilosec 20 mg in the morning. 6. Losartan 100 mg in the morning. 7. Vitamin D3 1000 units daily. 8. Metformin 500 mg in the evening. 9. Most recently Bactrim 400/80 two tablets p.o. 2 times a day. FAMILY HISTORY: Noncontributory. SOCIAL HISTORY: The patient denies any use of tobacco. No alcohol use and no history of drug use. She is retired. She has 3 children. Her son, Will is her healthcare proxy, who is currently at the bedside. His number is [phone]. She is a full code. REVIEW OF SYSTEMS: The patient at this time denies any fever, fatigue, or chills. She does endorse a slightly productive cough. No acute shortness of breath. No chest pain, no abdominal pain, no nausea. She does still have urinary frequency. Denies any burning sensation or other urinary complaints. No arthralgias or myalgias. She cannot comment on unsteady gait as she has not been out of bed since being in the emergency department, but no further constitutional complaints are noted. PHYSICAL EXAMINATION GENERAL: Reveals a well-appearing older female, in no acute distress. VITAL SIGNS: Blood pressure 140/82, heart rate 80, respiratory rate 18, O2 saturation 96% on room air with a temperature of 98.1. HEENT: The patient is atraumatic, normocephalic. PERRLA. Nonicteric sclerae. Oral mucosa is moist. Tongue is midline. NECK: Supple, nontender. No JVD noted. No carotid bruits auscultated. LUNGS: Clear bilaterally to auscultation with no wheezing, rhonchi, or rales. CARDIOVASCULAR: S1, S2 present. No murmurs, gallops or rubs noted. Rate and rhythm are regular. ABDOMEN: Soft, nontender, nondistended. Positive bowel sounds in all 4 quadrants. No hepatosplenomegaly noted. : She is voiding freely. MUSCULOSKELETAL: There is no clubbing, no cyanosis, and no edema. She has +2 distal pulses palpable. Full range of motion. Gross motor and sensation are intact. NEUROLOGIC: Grossly intact with no focal deficits. Alert and oriented x3. PSYCHIATRIC: She is cooperative and appropriate. DIAGNOSTIC DATA/LAB DATA: WBCs 7.6, RBCs 4.78, hemoglobin 13.9, hematocrit 41 , and platelets 218. Sodium 129, potassium 4.3, chloride 95, CO2 of 25. BUN 13 , creatinine 1.10. GFR 47.2. Glucose 182, calcium 10.2. AST 20, ALT 17, alk phos 91, total protein 7.6, albumin is 4.4, globulin 3.2. Albumin and globulin ratio 1.4. IMPRESSION: Ms. Stratton is an 83-year-old female, who has had history of recent urinary tract infection on oral antibiotics, who comes to the emergency department today with reports of cold sweats, some dizziness, and some general malaise, found to be dehydrated. PLAN: The patient has been admitted to observation. DIAGNOSES: 1. Urinary tract infection. The patient's urinalysis does not appear to be infected at this point, however, she has been on the antibiotics for several days. Urine culture has been sent from the emergency department. She has received 1 dose of ceftriaxone. This will be continued tomorrow. In terms of her chronic urinary tract infections, we will continue to look for old cultures. It does appear that she has had gram-negative bacilli on her outpatient culture on 01/27/19. We will continue to follow that sample. She has also had E. coli earlier this year. As such, ceftriaxone would continue to be an appropriate antibiotic. 2. Hyponatremia and dehydration. It does appear that the patient is mildly dehydrated. Her creatinine is slightly above baseline. She has received IV normal saline in the emergency department. We will continue her with gentle hydration, normal saline at 75 mL per hour and slowly correct her sodium as well. Her sodium is chronically low, but it is usually in the 132 range. We will recheck a BNP in the morning. Her chloride is abnormally low as well. Again, we will recheck her labs in the morning. 3. Gait dysfunction. The patient does report that she felt unsteady and had a cold sweat. She does not appear toxic. I do not think she has a sepsis. She has no white count. She is hemodynamically stable. This is likely secondary to an uncomplicated urinary tract infection. However, we will have physical therapy evaluate the patient tomorrow. 4. History of insulin-dependent diabetes mellitus. She will be continued on her insulin and metformin. I do not think she will need coverage at this time. We will do Accu-Cheks a.c. only. I do not feel that she will need Lispro sliding scale at this time. 5. History of of hypertension. She will be continued on her home meds. 6. History of gastroesophageal reflux disease. She will be continued on her PPI. 7. History of hyperlipidemia. She will be continued on her statin. Diet. Consistent carb, as tolerated. DVT prophylaxis. She is high risk given her age and comorbid condition. She will be on Lovenox 40 mg q.24 hours. Code status. She is full code. The rest of the patient's course will be determined by further diagnostics, laboratories, and any other input from other providers as warranted during this admission. TIME SPENT: Forty-five minutes on admission planning, 50% of which was spent direct [id number] with the patient on admission plan of care and evaluation. ALVA RICHARDS NP [id number]/[facility] #: [id number] [email or web address]
[2019-01-29] MEDS: NS 0.9% 1000 ML** 1,000 ML IV SCH (15:06)
[2019-01-29] MEDS: metFORMIN* 500 MG TAB PO SCH (17:05)
[2019-01-29] MEDS: Enoxaparin(*) 40 MG/0.4 ML SYR SUBCUT SCH (17:06)
[2019-01-29] MEDS: Nystatin TOP POWDER* 15 GM BTL TOPICAL SCH ×2 (18:27→20:53)
[2019-01-29] MEDS ORDERED: Insulin GLARGINE(*) 1 UNITS UNIT SUBCUT SCH (21:00)
[2019-01-29] MEDS ORDERED: Atorvastatin* 10 MG TAB PO SCH (21:00)
[2019-01-30] MEDS: NS 0.9% 1000 ML** 1,000 ML IV SCH (05:18)
[2019-01-30 07:02] LABS: ABS Eosinophils 0.2 10^3/ul (0-0.6); ABS Lymphocytes 1.1 10^3/ul (1.0-4.8); ABS Monocytes 0.5 10^3/ul (0-0.8); ABS Neutrophils 3.9 10^3/ul (1.5-7.7); Eosinophil % 3.2 %; Hematocrit 38 % (35-47); Hemoglobin 13.2 g/dL (12.0-16.0); Lymphocyte % 18.9 %; Mean Corpuscular HGB Conc 34 g/dL (31-36); Mean Corpuscular Hemoglobin 29 pg (27-31); Mean Corpuscular Volume 85 fL (80-97); Mean Platelet Volume 9.3 fL (7.4-10.4); Platelet Count 188 10^3/uL (150-450); Red Blood Count 4.51 10^6 /uL (3.70-4.87); Red Cell Distribution Width 15 % (10-15); White Blood Count 5.7 10^3/uL (3.5-10.8)
[2019-01-30 07:15] LABS: BUN/Creatinine Ratio 10.1 (8-20); Calcium 9.4 mg/dL (8.6-10.3); EGFR African American 64.5 (>60); EGFR Non-African American 53.3 (>60); Potassium 4.5 mmol/L (3.5-5.0)
[2019-01-30] MEDS ORDERED: Losartan TAB* 25 MG PO SCH (09:00)
[2019-01-30] MEDS ORDERED: Pantoprazole TAB * 40 MG TAB PO SCH (09:00)
[2019-01-30] MEDS: metFORMIN* 500 MG TAB PO SCH (09:19)
[2019-01-30] MEDS ORDERED: Calcium Carbonate CHEW TAB* 500 MG (TUMS) PO PRN (10:59)
[2019-01-30] MEDS ORDERED: Cefdinir cap* 300 MG CAP PO ONE (11:53)
[2019-01-30] MEDS ORDERED: cefTRIAXone(*) 1 GM in NS 0.9% 50 ML* 50 ML IVPB SCH (12:00)
[2019-01-30] MEDS: Nystatin TOP POWDER* 15 GM BTL TOPICAL SCH (13:26)
[2019-01-30] MEDS: Enoxaparin(*) 40 MG/0.4 ML SYR SUBCUT SCH (13:26)
[2019-01-30 13:29] VITALS: BP 147/73
--- NOTE | 2019-01-30 19:16 | DS ---
CC: Dr. Clare Hudson DISCHARGE SUMMARY: DATE OF ADMISSION: 01/29/19 DATE OF DISCHARGE: 01/30/19 PRIMARY CARE PROVIDER: Dr. Clare Hudson. DISCHARGE DIAGNOSES: 1. Escherichia coli urinary tract infection, present on admission, not Herbert catheter related. 2. Nausea and vomiting, likely associated with Bactrim. SECONDARY DIAGNOSES: 1. Hypertension. 2. Gastroesophageal reflux disease. 3. Insulin-dependent diabetes. 4. Nephrolithiasis. 5. Hyperlipidemia. 6. Thoracic aortic aneurysm. 7. Hyperparathyroidism, status post parathyroidectomy. 8. Osteoporosis. 9. Diverticulosis. 10. Osteoarthritis. 11. Status post partial colectomy. 12. Status post appendectomy. 13. Status post tonsillectomy. 14. Status post hysterectomy. 15. Status post subdural hematoma evacuation. 16. Status post umbilical hernia repair. MEDICATION LIST: 1. Lantus 32 units subcutaneously at bedtime. 2. Vitamin B12 1000 mcg p.o. daily. 3. Raloxifene 60 mg p.o. daily. 4. Simvastatin 20 mg p.o. at bedtime. 5. Omeprazole 20 mg p.o. daily. 6. Losartan 100 mg p.o. daily. 7. Cholecalciferol 1000 units p.o. daily. 8. Metformin 500 mg p.o. at bedtime. 9. Acetaminophen 650 mg p.o. q.6 hours p.r.n. pain or fever. New medication: Cefpodoxime 200 mg p.o. q.12 hours for 5 more days. HOSPITAL COURSE: Ms. Stratton is an 83-year-old female with a past medical history as stated above, who had been diagnosed with a urinary tract infection as an outpatient and had been started on Bactrim. She presented to the emergency room with complaints of dizziness, malaise, nausea, and she also had an episode of emesis in the emergency room. Laboratory tests in the emergency room included a normal CBC, mild elevation of her creatinine, and h er urinalysis showed only trace LE with 1+ wbc's. There was concern because the patient was dehydrat ed and there was a question if she would be able to tolerate oral medications, so for that reason she was admitted for further observation and management. Her outpatient urine culture done in January 2019 grew E. coli that was sensitive to cephalosporins . A repeat urine culture done in the hospital showed no growth. The next day after receiving IV hydration and symptomatic treatment, the patient was feeling much imp roved. Her creatinine was trending down. She had no further nausea, was able to tolerate diet and f elt well enough to be discharged home. I believe her GI symptoms were related to Bactrim. She had no abdominal pain, no CVA tenderness, and no other symptoms to suggest a complicated urinary tract infection. The patient is medically stable to be discharged home today to follow up with Dr. Hudson as an outpat ient. PHYSICAL EXAMINATION: Vital Signs: Temperature 97.3, heart rate is 69, respiratory rate is 16, oxyg en saturation is 100% on room air, blood pressure is 142/70. General: The patient is a pleasant eld erly lady, sitting up in bed, in no acute distress. CVS: Normal S1, S2. Regular rate and rhythm. Chest: Breath sounds present bilaterally with no added sounds. Abdomen is obese. Bowel sounds pres ent. Extremities: No edema. Neuro: The patient is alert and oriented x3. Able to move all 4 extre mities. DIET: Heart-healthy, consistent carb diet. ACTIVITIES: As tolerated. DISPOSITION: To home. STATUS WHILE IN THE HOSPITAL: Observation. Please keep in mind that this is a summarized version of this patient's hospital stay. If you need m ore information, please feel free to call me at [phone] or please obtain full medical records. TIME SPENT: Approximately 45 minutes was spent to complete this discharge. [id number]/[facility] #: [id number]
== END 2019-01-30 13:40 | disposition home or self-care (01) ==
LOC: ED 09:29 → MED 12:42
PROVIDERS: ADMIT Internal Medicine; ATTEND Internal Medicine
DX: N39.0 Urinary tract infection, site not specified (principal); B96.20 Unspecified Escherichia coli [E. coli] as the cause of diseases classified elsewhere; R11.2 Nausea with vomiting, unspecified; I10 Essential (primary) hypertension; K21.9 Gastro-esophageal reflux disease without esophagitis; E10.9 Type 1 diabetes mellitus without complications; Z79.4 Long term (current) use of insulin; N20.0 Calculus of kidney; E78.5 Hyperlipidemia, unspecified; I71.2 Thoracic aortic aneurysm, without rupture; E21.3 Hyperparathyroidism, unspecified; M81.0 Age-related osteoporosis without current pathological fracture; K57.90 Diverticulosis of intestine, part unspecified, without perforation or abscess without bleeding; E87.1 Hypo-osmolality and hyponatremia; E86.0 Dehydration; M19.90 Unspecified osteoarthritis, unspecified site; Z90.411 Acquired partial absence of pancreas; Z90.89 Acquired absence of other organs; Z90.710 Acquired absence of both cervix and uterus; Z79.899 Other long term (current) drug therapy
CPT/HCPCS: 36415; 80048; 80053; 81003; 81015; 82803; 85025; 87086; 96361; 96365; 96372; 96375; 99284; A9270-GY; G0378; G8978-GP-CH; G8979-GP-CH; G8980-GP-CH; J0696; J1650; J2405